=== PATIENT | female | born 1950 | race Caucasian/White ===

== ENCOUNTER 2016-12-16 01:13 | Emergency (ER) | payer MEDICARE ==
[~2016-12-16] VITALS: Ht 157.5 cm; Wt 72.6 kg
[2016-12-16] MEDS ORDERED: NITROFURANTOIN50 MG PO (01:27)
[2016-12-16] MEDS ORDERED: METOPROLOL SUCC50 M4 PO (01:27)
[2016-12-16] MEDS ORDERED: RANITIDINE 150150 MG PO (01:28)
[2016-12-16] MEDS ORDERED: AMLO5TAB PO (01:28)
[2016-12-16] MEDS ORDERED: BUPROPION ER100 MG PO (01:28)
[2016-12-16] MEDS ORDERED: OMEGA-3-ACID ETH1 GM PO (01:29)
[2016-12-16] MEDS ORDERED: ZETIA10 MG PO (01:29)
[2016-12-16] MEDS ORDERED: METFORMIN 500M500 M1 PO (01:30)
--- NOTE | 2016-12-16 01:33 | Emergency Room Report ---
History of Present Illness Time Seen by MD [facility] Presenting Problem in Triage Pt arrived:Walked Presenting Problem:C/O COUGH. WHEEZING AND SHORTNESS OF BREATH Onset of symptoms date/time:12/14/16/ or onset unknown for:MEDICAL HX UNKNOWN Treatment Prior to Arrival: [employer] BLASTING Provided by: Sepsis Risk Assessment: Temp: 98.9 B/P: 189/90 MAP: 123 Pulse: 76 Resp: 18 Recent fever? N Clinical Suspician of Infection? N Mental Status: 1 - Regular (Normal Baseline) Sepsis Risk:Low Sepsis Risk Have you (or family members/close friends) recently traveled outside the [place]? N If Yes, where/when: Have you had exposure to infectious disease within the past month? N TB? Other? Specify: Comment Patient has a one-day history of nonproductive cough, wheezing, shortness of breath, and rhinorrhea. She denies fever. She is a former smoker. She denies asthma, emphysema, chronic obstructive pulmonary disease, but has had to use inhalers and had nebulizer treatments in the past, and has been treated with steroids "for colds". ALLERGIES Coded Allergies: Penicillins (Mild, I-RASH 12/16/16) Sulfa (Sulfonamide Antibiotics) (Mild, I-RASH 12/16/16) codeine (Mild, MAKE CRAZY 12/16/16) Home Medications Reported Medications NITROFURANTOIN MACROCRYSTAL (Nitrofurantoin) 50 MG PO DAILY #30 Metoprolol Succinate (Metoprolol Succinate XL) 50 MG PO DAILY #90 RANITIDINE HCL (Ranitidine HCl) 150 MG PO BID #180 Amlodipine Besylate (Amlodipine) 5 MG PO DAILY #90 BUPROPION HCL (Bupropion HCl Sr) 100 MG PO DAILY #90 Ezetimibe (Zetia) 10 MG PO DAILY #90 OMEGA-3 ACID ETHYL ESTERS ([place]-3 Acid Ethyl Esters) 1 GM PO TID #360 Metformin HCl (Metformin) 500 MG PO BID #90 History Medical History General CAD? No Angina: No [place]: No Hypertension? Yes Hyperlipidemia? Yes CHF? No DVT? Yes PE? No COPD? No Asthma? No Anemia? No GERD? No Gastric ulcers? No GI Bleed? No Hernia? No Thyroid Problems? No Hypothyroidism? No CVA? No Seizures? No Diabetes? Yes Insulin Dependent: No Insulin Pump: No Home FSBS? No Renal Insuffiency? No End Stage Renal Disease? No UTI? No Stones? No BPH? No GB Disease: No Nephritic Syndrome? No Asplenia? No Hepatitis? No Sickle Cell Disease? No Arthritis? Yes Migraines? No Cataracts? No Glaucoma? No MRSA? No HIV? No TB? No Anxiety? Yes Depression? No Cancer? No More? No Immunization Hx DT/Tetanus Unknown Surgical Hx Previous Surgery?Y TOTAL KNEE REPLACEMENT R Social History Smoking Hx Smoker: Former Smoker Tobacco: Yes Type Cigarettes Alcohol Alcohol: No Review of Systems All Other Systems Reviewed and Negative Constitutional denies fever ENT nose discharge. denies: throat pain. Respiratory cough, shortness of breath Cardiovascular denies chest pain Physical Exam Vital Signs Vital Signs Date Time Temp Pulse Resp B/P Pulse O2 O2 Flow FiO2 Ox Delivery Rate 12/16 0114 98.9 76 18 189/90 96 General Appearance normal appearance, WD/WN Eye Exam - bilateral eye normal exam, bilateral eye PERRL, bilateral eye EOMI Ear, Nose, Throat hearing grossly normal, normal ENT inspection Neck normal inspection, non-tender, supple, full range of motion Respiratory Status Yes: trachea midline, chest symmetrical, non productive cough. No: respiratory distress. Lung Sounds bilateral: wheezing. Cardiovascular normal exam, regular rate/rhythm, no peripheral edema, no gallop, no JVD, no murmur, no rub, normal peripheral pulses Peripheral Pulses Pulses normal Yes Gastrointestinal normal bowel sounds, normal exam, non tender, soft, no organomegaly Extremities normal range of motion, normal inspection Neurologic alert, normal exam, oriented x 3 Mental status normal mood/affect Skin intact, normal color, warm/dry Medical Decision Making LABS/Meds/Orders Pt receiving controlled substance in ED? No Results/Orders Laboratory Tests 12/16/16 0125: Sodium 140, Potassium 4.0, Chloride 102, Carbon Dioxide 26, BUN 22 H, Creatinine 1.2 H, Estimated Creat Clear 53, Estimated GFR (MDRD) 45 L, Glucose 117 H, Calcium 9.2, Total Bilirubin 0.4, AST 29, ALT 45, Alkaline Phosphatase 139 H, Total Protein 7.6, Albumin 3.6, Globulin 4.0 H, Albumin/Globulin Ratio 0.9 L, WBC 5.1, RBC 4.07 L, Hgb 12.4, Hct 36.2 L, MCV 89.0, RDW 14.3, Plt Count 195, MPV 5.5 L, Gran % 52.5, Gran # 2.7, Lymphocytes % 35.5, Monocytes % 7.4, Eosinophils % 4.3, Basophils % 0.4, Lymphocytes # 1.8, Monocytes # 0.4, Eosinophils # 0.2, Basophils # 0.0, PUBS MCHC 34.2, MCH 30.4 Current Medication Orders Sig/Halie Start time Last Medication Dose Route Stop Time Status Admin Albuterol 2 PUFFS ONCE ONE 12/16 229 AC IH 12/16 230 Miscellaneous 1 UNIT ONCE ONE 12/16 229 AC XX 12/16 230 Azithromycin 500 MG ONCE ONE 12/16 214 DC PO 12/16 021 Albuterol/Ipratropium 0 .STK-MED ONE 12/16 154 DC INH Albuterol/Ipratropium 3 ML ONCE ONE 12/16 144 DC 12/16 INH 12/16 145 0156 Methylprednisolone 125 MG ONCE ONE 12/16 144 DC 12/16 Sodium Succinate IV 12/16 145 014 Sodium Chloride 10 ML PRN PRN 12/16 144 AC IV 12/17 013 Methylprednisolone 0 .STK-MED ONE 12/16 142 DC Sodium Succinate .ROUTE Orders Procedure Date/time Status RT REQUEST ALBUTEROL INHALER 12/16 217 Active RT REQUEST DUONEB 12/16 136 Active CHEST(2 VIEWS-NOT PORTABLE) 12/16 136 Active IV SALINE LOCK 12/16 136 Active CBC WITH AUTO DIFF 12/16 136 Complete CHEM 12 PROFILE 12/16 136 Complete XRAY/CT/US XRAY/CT/US XRAY chest Comment X-ray interpreted by Noah Cates M.D.: Atelectasis versus scar in the bases, no infiltrate seen Progress - 2:12 AM: Recheck patient. Better air movement. She says she feels better. Pulse ox 96 percent on room air. Departure Departure Disposition DC Home or Self Care(routine) Clinical Impression Primary Impression: Acute bronchitis Qualifiers: Bronchitis organism: unspecified organism Qualified Code: J20.9 - Acute bronchitis, unspecified Secondary Impressions: Acute bronchospasm Condition STABLE Patient Instructions DI for Acute Bronchitis Additional Instructions Additional instructions for ACUTE BRONCHITIS: Use Tylenol or Ibuprofen for pain or fever. Zithromax, prednisone as prescribed. Use albuterol inhaler 2 puffs every 6 hours as needed for wheezing. Rest and plenty of fluids. Return immediately if you have an uncontrollable fever greater than 102 degrees, severe headache or neck stiffness, difficulty breathing or shortness of breath, persistent vomiting, severe sore throat or inability to swallow. See your physician if not improving in 4-5 days. Prescriptions Current Visit Scripts Prednisone (Prednisone 20MG Tab) 20 MG PO BID #6 TAB Azithromycin (Zithromax) 250 MG PO DAILY #4 TAB ED Critical Care Critical Care No at [id number]
[2016-12-16 01:44] LABS: HEMOGLOBIN 12.4 g/dL (12.2-16.2); LYMPH # 1.8 K/mm3 (0.7-4.5); LYMPH % 35.5 % (10-50.0)
[2016-12-16] MEDS ORDERED: ZITHROMAX Z-PA250 M2 PO (02:17)
[2016-12-16] MEDS ORDERED: PREDNISONE20 MG PO (02:17)
[2016-12-16 03:10] VITALS: BP 114/53
--- NOTE | 2016-12-16 08:51 | RADIOLOGY REPORT PS360 ---
CHEST(2 VIEWS-NOT PORTABLE) COMPARISON: None HISTORY: Cough and wheezing TECHNIQUE: PA and lateral chest FINDINGS: The lung valentino are well expanded and appear clear of infiltrate. There may be some minimal discoid atelectasis at the left base. Cardiac size is normal and is no pleural fluid. IMPRESSION: Minimal left basilar atelectasis versus scarring, no other significant abnormality noted.
== END 2016-12-16 03:12 | disposition home or self-care (01) ==
LOC: ER 01:13
PROVIDERS: Emergency Medicine
DX: J20.9 Acute bronchitis, unspecified (principal); J98.01 Acute bronchospasm; Z88.0 Allergy status to penicillin; Z88.4 Allergy status to anesthetic agent; Z88.2 Allergy status to sulfonamides